=== PATIENT | male | born 1990 | race Native Hawaiian/Other Pacific Islander ===

== ENCOUNTER 2016-05-19 21:03 | Emergency (ER) | payer SELFPAY ==
[~2016-05-19] VITALS: Ht 175.3 cm; Wt 80.0 kg
[2016-05-19 21:07] VITALS: BP 150/98; PULSE 96; RESP 16; TEMP 98.3; O2SAT 96
--- NOTE | 2016-05-19 21:24 | PD ---
HPI Chief Complaint: GI Complaint Time Seen by Provider: 21:22 Travel History International Travel<30 days: No Contact w/Intl Traveler<30days: No Traveled to known affect area: No History of Present Illness HPI 26-year-old male presents to the emergency department for evaluation of cough, congestion, headache that started 4 days ago, but worsened yesterday. He reports subjective fevers yesterday, but did not check his temperature. He has reports one episode of vomiting this morning, but states he has been able to eat since. Patient does report midsternal chest pain and intermittent shortness of breath. Patient states midsternal chest pain is worse with coughing. Patient has no chronic medical problems and takes no medications. Patient denies any leg swelling. [facility] Social History Alcohol Use: No Tobacco Use: No Substance Use: No Allergies-Medications (Allergen,Severity, Reaction): Coded Allergies: No Known Allergies (Unverified , 05/19/16) Review of Systems Except as stated in HPI: all other systems reviewed are Neg Physical Exam Narrative GENERAL: Well-developed well-nourished male patient, ambulatory. Afebrile. SKIN: Warm and dry. HEAD: Normocephalic. Atraumatic. EYES: No scleral icterus. No injection or drainage. NECK: Supple, trachea midline. No JVD or lymphadenopathy. CARDIOVASCULAR: Regular rate and rhythm without murmurs, gallops, or rubs. RESPIRATORY: Breath sounds equal bilaterally. No accessory muscle use. Lungs sounds are clear to auscultation. GASTROINTESTINAL: Abdomen soft, non-tender, nondistended. MUSCULOSKELETAL: No cyanosis, or edema. Menstrual chest pain is reproducible with palpation. BACK: Nontender without obvious deformity. No CVA tenderness. Data Data Last Documented VS Vital Signs Date Time Temp Pulse Resp B/P Pulse Ox O2 Delivery O2 Flow Rate FiO2 05/19/16 21:07 98.3 96 16 150/98 96 Room Air Orders Chest, Single Ap (05/19/16 ) Influenzae A/B Antigen (05/19/16 21:20) MDM Medical Decision Making Medical Screen Exam Complete: Yes Emergency Medical Condition: Yes Medical Record Reviewed: Yes Interpretation(s) chest x-ray - CONCLUSION: Normal examination. Differential Diagnosis Bronchitis versus pneumonia versus viral syndrome versus influenza Narrative Course 26-year-old male presents to the emergency department for evaluation of cold symptoms for 4 days. Patient appears well on exam. Chest x-ray and influenza are ordered and pending. Chest x-ray is normal. Influenza is negative. Symptoms and physical are consistent with a viral syndrome. Patient will be discharged with a prescription for Tamiflu and Zofran. He is to rest, drink plenty of fluids, and follow up with his primary care physician. He is to take take Tylenol/Ibuprofen as needed. He is agreeable to this plan. Diagnosis Primary Impression: Viral syndrome Referrals: Primary Care Physician call for appointment Patient Instructions: General Instructions, Viral Syndrome (ED) Departure Forms: School Release, Return to School Date: May 22, 2016 Tests/Procedures Additional Instructions: Rest. Drink plenty of water. Tylenol/Motrin as needed for fever/pain. Take ondansetron as needed for nausea/vomiting. Take Tamiflu as directed. Follow up with a primary care physician. Return to the emergency department for any acute, worsening of symptoms. Med/Other Pt SpecificInfo: Prescription(s) given Scripts Ondansetron Odt 4 Mg Tab4 Mg SL Q6HR PRN (Nausea/Vomiting) #16 TAB Ref 0 Prov:Brianna Roy 05/19/16 Oseltamivir (Tamiflu)75 Mg Cap75 Mg PO BID 5 Days Ref 0 Prov:Brianna Roy 05/19/16 Disposition: 01 DISCHARGE HOME Condition: Stable Brianna Roy May 19, 2016 21:24
--- NOTE | 2016-05-19 21:49 | RADRPT ---
EXAM DATE/TIME: 05/19/2016 21:32 [place] COMPARISON: No previous studies available for comparison. INDICATIONS : Fever, Vomiting, Cough, Short of Breath, Chest Pain. MEDICAL HISTORY : None. SURGICAL HISTORY : None. ENCOUNTER: Initial ACUITY: 4 - 6 days PAIN SCORE: 2/10 LOCATION: Bilateral chest FINDINGS: A single view of the chest demonstrates the lungs to be symmetrically aerated without evidence of mas s, infiltrate or effusion. The cardiomediastinal contours are unremarkable. Osseous structures are intact. CONCLUSION: Normal examination. Epi Michaud Jr., MD on May 19, 2016 at 21:48 Board Certified Radiologist. This report was verified electronically.
[2016-05-19] MEDS ORDERED: OSEL75 PO (22:11)
[2016-05-19] MEDS ORDERED: ONDA4TAB7 SL (22:11)
== END 2016-05-19 22:46 | disposition home or self-care (01) ==
LOC: NEPC 21:03
DX: B34.9 Viral infection, unspecified (principal)
CPT/HCPCS: 71010; 87804; 99284